=== PATIENT | female | born 1985 | race Caucasian/White ===

== ENCOUNTER 2017-02-28 05:55 | Inpatient (IN) | payer SELFPAY ==
--- NOTE | ~2017-02-28 | HP ---
History And Physical [place] [id number] [facility] [place]. [address] NAME: NAZIA MARRERO : 89 STATUS : ADM IN [facility]#: [id number] AGE: 31 ADM/REG DATE : 02/28/17 MR#: [id number] REPORT SERV DATE: 02/28/17 DICTATED BY: RUTH LEIVA DATE: 02/28/17 REPORT STATUS : Draft TRANSCRIBED BY: LATRICE DATE: 02/28/17 DATE OF ADMISSION: 02/28/2017 REASON FOR ADMISSION: Buttock cellulitis. HISTORY OF PRESENT ILLNESS: This is a 31-year-old, white female, who lives at the [facility] most of the time. She is a reformed heroin addict but had a slip up last week and took a dose of heroin. She was taking this because of pain in her buttock. The pain in the buttock began about five days ago with a small pimple, increased in redness, and now is generalized over the left buttock into the left vulva. She was seen in the emergency room with CT scan of the buttock that showed cellulitis and possibly a fistula. She believes that the problem started with a spider bite on her buttocks because she could see the biting membreno. PAST SURGICAL HISTORY: She has had three surgeries. She had bilateral tubal ligation. Two umbilical hernia surgeries in the past. SOCIAL HISTORY: She grew up in [place], [place]. She lived in [place] most recently. She is addicted to heroin and has taken methamphetamine. She took some methamphetamine even last week. She had withdrawn herself from heroin in the last two years. She has three children. Her mother takes care of the oldest one. Her ex- has custody of the two youngest. She has supervised visitation with the children, though ex- has mother figure that takes care of them who recognize as mother. She smokes cigarettes about a pack a day. She denies any alcohol. She is a reformed heroin addict with a recrudescence. She did not attend voodoo but has [employer] leanings. FAMILY HISTORY: She did not know her biological father. Her mother has COPD. Her brother is in detention. She has a set of twin sisters, one lives in [place] and one lives in [place]. COPD runs in the family. REVIEW OF SYSTEMS: She has pain mostly in the buttocks. No chest pain or shortness of breath. She does have ear pain. She has had fever, chills, and night sweats. She has a large buttock abscess. She has had sexual exposure last time about five months ago, but denies multiple or frequent and proximal sexual partners. HOME MEDICATIONS: Only Clear Eyes eye drops. ALLERGIES: PENICILLIN CAUSES THROAT SWELLING AND SHUT UP. PHYSICAL EXAMINATION: VITAL SIGNS: Blood pressure 116/70 with a heart rate of 130, respiratory rate 18, temperature 98.7 with oxygen saturation 96%. History And Physical [address] [address] NAME: NAZIA MARRERO : [birth year] STATUS : ADM IN [facility]#: [id number] AGE: 31 ADM/REG DATE : 02/28/17 MR#: [id number] REPORT SERV DATE: 02/28/17 DICTATED BY: RUTH LEIVA DATE: 02/28/17 REPORT STATUS : Draft TRANSCRIBED BY: LATRICE DATE: 02/28/17 HEENT: EOMI. Sclerae clear. Conjunctivae pink. NECK: No bruit without any JVD. CHEST: Clear to A and P. HEART: Regular S1, S2 without murmur, gallop, or click. ABDOMEN: Soft and nontender. SKIN: There is redness, swelling, fluctuance feel to the left buttocks. It extends around through the perineal area to the left labia, they are extremely tender to touch. NEUROLOGIC: She withdraws to plantar stimulation. Childcare Center Director is symmetric bilaterally. Coordination intact. She has no tremor. She is extremely uncomfortable and unable to position properly to evaluate the patient in supine position. RECTAL: Not performed. LYMPHATICS: There is no adenopathy palpable. SKIN: There are some acneiform lesion across the face. NEUROLOGIC: The patient has writhing motion that she claims to be due to the buttocks, not stimulants that she smoked nor the injection of the heroin with withdrawal. LABORATORY DATA: She has marked cellulitis in the buttocks and the labial area but question underlying anal fistula by CT scan. The white count was 18,000, hemoglobin 13.6, hematocrit 37.4, platelets were 247,000, sodium 135, potassium 3.7, creatinine 1.12, BUN 15, glucose 89. Urinalysis; 35 white cells per high-power field. ALT 145, AST 58. Urine drug screen positive for amphetamines, cannabis, and opiates. Lactate level was 1.2. ASSESSMENT: 1. Sepsis secondary to buttocks cellulitis. 2. Left buttock cellulitis by CT scan. No abscess was reported. There may be some abscess developing as there is a large fluctuant, tense feeling to the buttocks on the upper left side at the point of scab or the head of the abscess or spider bite as it may be. 3. Possible anal fistula. 4. History of fibromyalgia. 5. Surgeries as above. 6. History of narcotic addiction. 7. Multiple drug use including heroin and methamphetamine. 8. History three pregnancies. 9. Possible history of fibromyalgia. PLAN: We will start triple antibiotic coverage with vancomycin, clindamycin, and cefepime. I will consult Surgery because of question of the anal fistula and consideration for occult abscess versus necrotizing fasciitis that may need to be debrided. DB/LATRICE Ruth History And Physical [address] [address] NAME: NAZIA MARRERO : [birth year] STATUS : ADM IN [facility]#: [id number] AGE: 31 ADM/REG DATE : 02/28/17 MR#: [id number] REPORT SERV DATE: 02/28/17 DICTATED BY: RUTH LEIVA DATE: 02/28/17 REPORT STATUS : Draft TRANSCRIBED BY: MODL DATE: 02/28/17 Saniya Leiva / [id number] CC: Jethro Arredondo Jr, MD Uzma Seymour M.D.
--- NOTE | ~2017-02-28 | DS ---
Discharge Summary [facility] [address] [place]. [address] NAME: NAZIA MARRERO : 89 STATUS : DIS IN PAT#: [id number] AGE: 31 ADM/REG DATE : 02/28/17 MR#: [id number] REPORT SERV DATE: 03/08/17 DICTATED BY: NURISCHANTALEFELIX CARRILLO DATE: 03/07/17 REPORT STATUS : Draft TRANSCRIBED BY: MODL DATE: 03/07/17 ADMISSION DATE: 02/28/2017 DISCHARGE DATE: 03/07/2017 DISCHARGE DIAGNOSES: 1. Left buttocks/vulvar cellulitis. 2. Status post ischiorectal abscess incision and drainage with placement of drains. 3. Anal fistula. 4. History of drug abuse. CONSULTATION: 1. Surgery, Dr. Morel. 2. Infectious Disease, Dr. Meeks. PROCEDURES AND IMAGIN. CT pelvis 02/28/2017, impression mixed cellulitis in buttocks and labia, question underlying anal fistula. May wish to consider MRI for further resolution. 2. MRI of the pelvis 03/05/2017, impression left side lower intersphincteric fistula exiting through the rectum, trans internal anal sphincter complex and there is mid rectal, probably trans external/internal sphincter muscle fistula. It is also associated with cellulitis. There appears to be a small tract along the medial subcutaneous tissue draining the infectious material. 3. Incision and drainage of ischiorectal abscess and placement of drains and anal exam under anesthesia, 03/06/2017, by Dr. George Hager. COURSE OF HOSPITAL STAY: Please refer to history and physical dictated by Dr. Tres Husain on 02/28/2017, for complete admission details as well as consultation notes. This patient is a 31-year-old female who was evaluated at [facility]'s emergency room with complaints of buttock cellulitis. Stating that the pain in her buttocks had increased five days prior to this admission. The patient stated at that time that area began as a small pimple and increasing redness and then was generalized pain in the left buttocks up to the left vulva. The patient does present with a history of heroin addiction but had at that time stated she had recently started re-using up to one week prior to this admission. The patient was admitted to the hospital for further evaluation and treatment to her left buttocks. 1. Left buttocks and vulvar cellulitis: Imaging was obtained, which was noted above. Surgical consult was also obtained. The patient was evaluated. Initially, surgery was held off. Further re-evaluation, the patient did undergo an I and D as noted above on 03/06/[address] Hager. Infectious Disease was consulted due to patient's wound culture returning positive methicillin-resistant Staph aureus. The patient was initially placed on vancomycin, and initially placed on vancomycin and cefepime. Due to the patient's drug history, ID was involved to evaluate best antibiotic for coverage. The patient was then started on Zyvox prior to discharge. The patient did tolerate, will continue Zyvox for a total of eight days. Prescription was provided for the patient, filled in hospital pharmacy, and provided for the patient prior to Discharge [address] [address] NAME: NAZIA MARRERO : 89 STATUS : DIS IN PAT#: [id number] AGE: 31 ADM/REG DATE : 02/28/17 MR#: [id number] REPORT SERV DATE: 03/08/17 DICTATED BY: CHANTALE ILN DATE: 03/07/17 REPORT STATUS : Draft TRANSCRIBED BY: LATRICE DATE: 03/07/17 discharge. Home health care was ordered but due to patient's financial status and location, the patient was unable to provide home health care. The patient and friend were instructed on wound care. The patient will follow up with Surgery in 7-10 days. The patient and friend did state understanding and agreed with the treatment plan. 2. Status post incision and drainage. Again, the patient will follow up with Surgery in 7- 10 days. 3. Anal fistula as noted above. Imaging was obtained. The patient did undergo procedure as noted above. 4. Drug abuse. The patient does admit to heroin use. It was discussed with the patient to do possible and/or outpatient treatment at this time. She has declined. DISCHARGE PLANNING: The patient will be discharged home in a hemodynamically stable condition. She will continue with Zyvox for a total of eight days and prescription has been provided for the patient. She was provided with a prescription for oxycodone 5/325 mg one every four hours p.r.n. for pain #10. The patient again has been advised to follow up with Dr. Madan degroot. Drain at that time will be re-evaluated as well as site. The patient did state understanding. DISCHARGE MEDICATIONS: 1. Multivitamin over the counter. 2. Transdermal nicotine patch over the counter. 3. Zyvox 600 mg one p.o. every a.m. twice daily for a total of eight days. 4. Oxycodone 5/325 mg one every four hours p.r.n. for pain, #10. Discharge took greater than 30 minutes. BRETT/LATRICE Chantale Lin NP / [id number] CC: Eric Rowley MD
--- NOTE | ~2017-02-28 | IDS ---
Interim Discharge Summary [facility] [address] [place]. [address] NAME: ANZIA MARRERO : 89 STATUS : ADM IN PAT#: [id number] AGE: 31 ADM/REG DATE : 02/28/17 MR#: [id number] REPORT SERV DATE: 03/05/17 DICTATED BY: DATE: REPORT STATUS : Draft TRANSCRIBED BY: MODL DATE: 03/04/17 ADMISSION DATE: 02/28/2017 DISCHARGE DATE: DATE OF DISCHARGE: Undetermined at this time. Interim summary covers dates of service between 02/28/2017 and 03/04/2017. CONSULTATIONS: 1. Dr. Mateo Morel, Surgery. 2. Wound nurse team. 3. Dr. Lunsford, Surgery/business applications specialist. HOSPITAL COURSE: 1. Left buttock/vulvar cellulitis. The patient presented to the emergency department on 02/28/2017 with complaint of left buttock and left labial pain. Cefepime, Cleocin, and vancomycin were initiated. No wound cultures were obtained upon admission. Surgery was consulted for recommendations. Initial surgical interventions included localized wound care, continuation of antibiotics, sitz bath, and daily showers with Hibiclens soap. Left buttock lesion opened and drained copious amounts of thick purulent drainage and blood. Erythema and edema to left buttock and left labia improved slightly with antibiotics, however, left buttock wound became more localized with increased induration. Assessment of left buttock wound yesterday included wound probe with sterile Q-tip that demonstrated. Wound was not measured at that time secondary to the patient's inability to tolerate discomfort associated with the assessment. Surgery signed off with recommendations to continue local wound care and antibiotics. Wound nurse was consulted. An attempted measurements of wound depth indicated at least 4 cm tunneling in the direction of the vaginal region. Dr. Lunsford has been consulted for further recommendations to include surgical intervention and wound care. Wound culture was obtained several days after antibiotics were started. Preliminary results indicates Staph species b.i.d. Cleocin was discontinued secondary to high risk for C. diff. Flagyl was initiated and vancomycin and cefepime are to be continued. 2. Anal fistula (?) CT of the pelvis indicated concern for possible anal fistula. MRI of pelvis with IV contrast has been ordered and is pending. 3. Hepatitis C antibody reactive. The patient has a history of recent and remote IV drug abuse. Hepatitis RNA is pending. HIV screen was negative. 4. Drug abuse. The patient has a recent and remote history of heroin and meth abuse. Drug screen was positive for amphetamines, cannabinoids, and opiates. The patient was educated regarding risk associated with illicit drug use. The patient declined outpatient referral for treatment. The patient has history of both in and outpatient treatment. The patient recently completed 10 months with no drug use, but restarted within the last week. The patient is not a candidate for outpatient IV antibiotics requiring PICC line secondary to high abuse potential. 5. Opioid-indued constipation. Continue bowel regimen. DISPOSITION PLAN: Interim Discharge Summary [address] [address] NAME: NAZIA MARRERO : 89 STATUS : ADM IN PAT#: [id number] AGE: 31 ADM/REG DATE : 02/28/17 MR#: [id number] REPORT SERV DATE: 03/05/17 DICTATED BY: DATE: REPORT STATUS : Draft TRANSCRIBED BY: LATRICE DATE: 03/04/17 1. Discharge date is unclear at this time secondary to surgical recommendations pending. 2. The patient may have prolonged hospitalization if IV antibiotics are required. DENNY/LATRICE GRABIEL Jones / [id number] CC: Cheikh Means II, MD
--- NOTE | ~2017-02-28 | OP ---
Record Of Operation [facility] [address] [place]. [address] NAME: NAZIA ADKINS : 89 STATUS : ADM IN PAT#: [id number] AGE: 31 ADM/REG DATE : 02/28/17 MR#: [id number] REPORT SERV DATE: 03/07/17 DICTATED BY: BLU TY DATE: 03/06/17 REPORT STATUS : Draft TRANSCRIBED BY: MODL DATE: 03/06/17 DATE OF PROCEDURE: 02/28/2017 PREOPERATIVE DIAGNOSES: Ischiorectal abscess and possible fistula. POSTOPERATIVE DIAGNOSIS: Ischiorectal abscess. PROCEDURE: Incision and drainage of the ischiorectal abscess with placement of drains and anal exam under anesthesia. SURGEON: Shanita Ty M.D. ESTIMATED BLOOD LOSS: 20 mL. INDICATION: Ms. Adkins is a 31-year-old female with ischiorectal abscess with concern on the MRI that she may have a fistula as well. She had ongoing pain. Additional drainage was recommended as well as possible treatment of fistula that was including bleeding infection and incontinence among others were discussed with her, and she agreed to proceed. DESCRIPTION: The patient was taken to the operating room, given general anesthetic, placed in a prone sandy-knife position. Anal area was prepped and draped, and a left perianal opening was probed, and abscess cavity extended down towards the labia and up in the left buttock. Counter incisions were made x2 after debriding skin and subcutaneous tissue sharply with a scalpel, and then these were sutured into position. I carefully examined the anal canal both by palpation and inspection using a Hirschman anoscope and could not identify any evidence for fistula. Dressing was applied. The patient tolerated the procedure well. JULIA/LATRICE Shanita Ty M.D. / [id number] CC: Eric Rowley MD NO PCP
--- NOTE | ~2017-02-28 | CN ---
Consultation Report [facility] [address] [facility] [place]. [address] NAME: NAZIA MARRERO : 89 STATUS : ADM IN [facility]#: [id number] AGE: 31 ADM/REG DATE : 02/28/17 MR#: [id number] REPORT SERV DATE: 03/04/17 DICTATED BY: DENTON DONATO DATE: 03/02/17 REPORT STATUS : Draft TRANSCRIBED BY: MODL DATE: 03/02/17 GENERAL SURGERY CONSULTATION DATE OF CONSULTATION: 02/28/2017 CONSULTING PHYSICIAN: Dr. Cottrell CONSULTED PHYSICIAN: Dr. Donato. REASON: Left buttock cellulitis. HISTORY OF PRESENT ILLNESS: 31-year-old female with five-day history of left buttock pain, erythema, and pain, is progressively worsening. She also endorses fever and chills. She says that she noted a pimple on her left buttock that has gotten worse. No purulent drainage noted. She also denies any history of Crohn disease. No history of colonoscopy or bloody bowel movements or pain with defecation. REVIEW OF SYSTEMS: 12-point review of systems as stated above otherwise negative. PAST MEDICAL HISTORY: None. PAST SURGICAL HISTORY: Bilateral tubal ligation, umbilical hernia x2. MEDICATIONS: Vanc, clinda, cefepime. No home medications. ALLERGIES: PENICILLIN. SOCIAL HISTORY: She is a heroin and meth user and 1 pack per day smoker. PHYSICAL EXAMINATION: VITAL SIGNS: 94, heart rate 136/81, 99.8, 99% on room air. GENERAL: The patient is in no acute distress. She is alert and oriented x3. HEART: Regular rate and rhythm. No murmurs, rubs, or gallops. LUNGS: Clear to auscultation bilaterally without wheezes, rales or rhonchi. ABDOMEN: Soft, nontender, nondistended. Left buttock and vulvar cellulitis. No discrete areas of fluctuance. She is very tender to palpation and warm to the touch. LABS: White count 18, hematocrit 37.4, platelets 247. RADIOLOGY: CT scan of the pelvis significant for diffuse cellulitis of the left buttocks and labia, no abscess. ASSESSMENT AND PLAN: This is a 31-year-old female with cellulitis, no fluctuance on exam or Consultation Report [facility] [address] [facility] [address] [place]. [address] NAME: NAZIA MARRERO : 89 STATUS : ADM IN PAT#: [id number] AGE: 31 ADM/REG DATE : 02/28/17 MR#: [id number] REPORT SERV DATE: 03/04/17 DICTATED BY: DENTON DONATO DATE: 03/02/17 REPORT STATUS : Draft TRANSCRIBED BY: MODL DATE: 03/02/[address] We will continue IV antibiotics for now. May coalesce into an abscess over the next couple of days. We will continue to monitor. Thank you for the consultation. DICTATED BY: Abbie Granados MD EZ/LATRICE Denton Donato M.D. / [id number] CC: Cheikh Means II, MD
[2017-02-28 05:29] LABS: BASOPHILS 0.2 %; BASOPHILS ABSOLUTE 0.04 10/3/uL (0.0-0.16); EOSINOPHILS 0.4 %; EOSINOPHILS ABSOLUTE 0.08 10/3/uL (0.0-0.53); ER CBC TAT 0 Hrs 07 Mins; HEMATOCRIT 37.4 % (36.0-48.0); HEMOGLOBIN 13.6 g/dL (12.0-16.0); IMMATURE GRANULOCYTES 0.4 %; IMMATURE GRANULOCYTES ABSOLUTE 0.08 10/3/uL (0.0-0.11); LYMPHOCYTES 17.4 %; LYMPHOCYTES ABSOLUTE 3.14 10/3/uL (0.67-4.30); MEAN CORPUS HGB CONC 36.4 g/dL (32.0-36.0); MEAN CORPUSCULAR HEMOGLOB 33.3 pg (26.0-34.0); MEAN CORPUSCULAR VOLUME 91.4 fL (80-100); MEAN PLATELET VOLUME 8.8 fL (9.2-13.0); MONOCYTES 14.5 %; MONOCYTES ABSOLUTE 2.62 10/3/uL (0.21-1.20); NEUTROPHILS 67.1 %; NEUTROPHILS ABSOLUTE 12.05 10/3/uL (2.02-8.40); PLATELET COUNT 246 10/3/uL (150-400); RBC DISTRIBUTION WIDTH 12.5 % (12.0-16.0); RED CELL COUNT 4.09 10/6/uL (4.0-5.6)
[2017-02-28 05:30] LABS: MANUAL DIFF NO %
[2017-02-28 05:36] LABS: INTERNATIONAL NORMAL RATI 1.1 UNITS (-); PROTIME (NOT ORD) 14.3 SEC (12.0-14.5)
[2017-02-28 05:37] LABS: PARTIAL THROMBO TIME 36.3 SEC (22.5-37.2)
[2017-02-28 05:46] LABS: A/G RATIO 0.8 (0.7-1.9); ALBUMIN 3.5 G/DL (3.5-5.0); ALKALINE PHOSPHATASE 108 U/L (45-117); BUN (BLOOD UREA NITROGEN) 15 MG/DL (6-23); CALCIUM, SERUM 8.6 MG/DL (8.5-10.4); CHLORIDE, SERUM 100 MMOL/L (96-112); CO2 (CARBON DIOXIDE) 26 MMOL/L (24-34); CREATININE 1.12 MG/DL (0.55-1.02); GFR AFRICAN AMERICAN 77 ML/MIN (>=60); GFR NON AFRICAN AMERICAN 66 ML/MIN (>=60); GLOBULIN 4.5 G/DL (2.5-4.1); GLUCOSE, SERUM 89 MG/DL (60-99); POTASSIUM, SERUM 3.7 MMOL/L (3.5-5.3); SGOT(AST) 58 U/L (5-40); SGPT(ALT) 145 U/L (5-65); SODIUM, SERUM 135 MMOL/L (135-148)
[2017-02-28 05:47] LABS: ACETAMINOPHEN LEVEL (TYLENOL) < 2.0 MCG/ML (10.0-20.0); ALCOHOL < 10 MG/DL (0); SALICYLATE < 1.7 MG/DL (-)
[2017-02-28 05:53] LABS: LACTATE 1.2 MMOL/L (0.3-2.4)
[2017-02-28 06:04] LABS: ASCORBIC ACID (UR NOT ORDER) NEG (NEG); BILIRUBIN, URINE NEGATIVE (NEG); ER URINALYSIS TAT 0 Hrs 00 Mins; KETONE, URINE NEGATIVE (NEG); LEUKOCYTE ESTERASE(NOT OR LARGE (NEG); NITRITE (URINE) NEG (NEG); WBC (NOT ORDERED) (RFLEX) 35 (0-5)
[2017-02-28 06:33] LABS: AMPHETAMINES (NOT ORD) POS (NEG); BARBITURATES (NOT ORDERED NEG (NEG); BENZODIAZEPINES (NOT ORD) NEG (NEG); CANNABINOIDS (THC) POS (NEG); COCAINE (NOT ORDERED) NEG (NEG); OPIATES POS (NEG); PHENCYCLIDINE(PCP) NEG (NEG); TRICYCLICS NEG (NEG)
[2017-02-28] MEDS ORDERED: CLEAR EYE1 OPH (08:54)
[2017-03-01 06:10] LABS: CALCIUM, SERUM 8.3 MG/DL (8.5-10.4); CHLORIDE, SERUM 103 MMOL/L (96-112); CO2 (CARBON DIOXIDE) 25 MMOL/L (24-34); CREATININE 0.96 MG/DL (0.55-1.02); GFR AFRICAN AMERICAN 93 ML/MIN (>=60); GFR NON AFRICAN AMERICAN 80 ML/MIN (>=60); GLUCOSE, SERUM 94 MG/DL (60-99); SODIUM, SERUM 138 MMOL/L (135-148)
[2017-03-01 06:13] LABS: BUN (BLOOD UREA NITROGEN) 10 MG/DL (6-23)
[2017-03-01 06:28] LABS: BASOPHILS 0.2 %; BASOPHILS ABSOLUTE 0.03 10/3/uL (0.0-0.16); EOSINOPHILS 0.7 %; EOSINOPHILS ABSOLUTE 0.13 10/3/uL (0.0-0.53); HEMATOCRIT 36.2 % (36.0-48.0); HEMOGLOBIN 12.8 g/dL (12.0-16.0); IMMATURE GRANULOCYTES 0.4 %; IMMATURE GRANULOCYTES ABSOLUTE 0.08 10/3/uL (0.0-0.11); LYMPHOCYTES 11.8 %; LYMPHOCYTES ABSOLUTE 2.25 10/3/uL (0.67-4.30); MEAN CORPUS HGB CONC 35.4 g/dL (32.0-36.0); MEAN CORPUSCULAR HEMOGLOB 32.9 pg (26.0-34.0); MEAN CORPUSCULAR VOLUME 93.1 fL (80-100); MONOCYTES 11.6 %; MONOCYTES ABSOLUTE 2.21 10/3/uL (0.21-1.20); NEUTROPHILS 75.3 %; NEUTROPHILS ABSOLUTE 14.39 10/3/uL (2.02-8.40); PLATELET COUNT 236 10/3/uL (150-400); RED CELL COUNT 3.89 10/6/uL (4.0-5.6); WHITE BLOOD CELLS 19.1 10/3/uL (4.5-10.5)
[2017-03-01 06:29] LABS: MANUAL DIFF NO %
[2017-03-01 08:12] LABS: HEPATITIS B SURFACE ANTIGEN NON-REACTIVE (NON-REACT)
[2017-03-01 08:36] LABS: HEPATITIS B CORE AB IGM NON-REACTIVE (NON-REAC)
[2017-03-01 08:39] LABS: HEP A ANTIBODY IGM NON-REACTIVE (NON-REACT)
[2017-03-01 10:30] LABS: HEPATITIS C ANTIBODY REACTIVE (NON-REACT)
[2017-03-02 05:49] LABS: BASOPHILS 0.3 %; BASOPHILS ABSOLUTE 0.03 10/3/uL (0.0-0.16); HEMOGLOBIN 12.2 g/dL (12.0-16.0); LYMPHOCYTES 19.7 %; LYMPHOCYTES ABSOLUTE 1.92 10/3/uL (0.67-4.30); MANUAL DIFF NO %; MEAN CORPUS HGB CONC 35.9 g/dL (32.0-36.0); MEAN CORPUSCULAR HEMOGLOB 33.2 pg (26.0-34.0); MEAN CORPUSCULAR VOLUME 92.4 fL (80-100); MEAN PLATELET VOLUME 9.2 fL (9.2-13.0); MONOCYTES 10.1 %; MONOCYTES ABSOLUTE 0.99 10/3/uL (0.21-1.20); NEUTROPHILS 66.9 %; NEUTROPHILS ABSOLUTE 6.52 10/3/uL (2.02-8.40); PLATELET COUNT 236 10/3/uL (150-400); RBC DISTRIBUTION WIDTH 12.7 % (12.0-16.0); RED CELL COUNT 3.68 10/6/uL (4.0-5.6); WHITE BLOOD CELLS 9.8 10/3/uL (4.5-10.5)
[2017-03-03 07:10] LABS: BASOPHILS 0.7 %; BASOPHILS ABSOLUTE 0.04 10/3/uL (0.0-0.16); EOSINOPHILS ABSOLUTE 0.18 10/3/uL (0.0-0.53); HEMATOCRIT 32.2 % (36.0-48.0); HEMOGLOBIN 11.5 g/dL (12.0-16.0); IMMATURE GRANULOCYTES ABSOLUTE 0.12 10/3/uL (0.0-0.11); LYMPHOCYTES 36.7 %; LYMPHOCYTES ABSOLUTE 2.17 10/3/uL (0.67-4.30); MEAN CORPUS HGB CONC 35.7 g/dL (32.0-36.0); MEAN CORPUSCULAR HEMOGLOB 33.3 pg (26.0-34.0); MEAN CORPUSCULAR VOLUME 93.3 fL (80-100); MEAN PLATELET VOLUME 9.2 fL (9.2-13.0); MONOCYTES ABSOLUTE 0.71 10/3/uL (0.21-1.20); NEUTROPHILS 45.6 %; PLATELET COUNT 257 10/3/uL (150-400); RBC DISTRIBUTION WIDTH 13.1 % (12.0-16.0); RED CELL COUNT 3.45 10/6/uL (4.0-5.6); WHITE BLOOD CELLS 5.9 10/3/uL (4.5-10.5)
[2017-03-03 07:11] LABS: MANUAL DIFF NO %
[2017-03-03 07:18] LABS: CALCIUM, SERUM 7.9 MG/DL (8.5-10.4); CHLORIDE, SERUM 107 MMOL/L (96-112); CO2 (CARBON DIOXIDE) 27 MMOL/L (24-34); CREATININE 0.68 MG/DL (0.55-1.02); GFR AFRICAN AMERICAN 137 ML/MIN (>=60); GFR NON AFRICAN AMERICAN 118 ML/MIN (>=60); GLUCOSE, SERUM 106 MG/DL (60-99); POTASSIUM, SERUM 3.7 MMOL/L (3.5-5.3); SODIUM, SERUM 144 MMOL/L (135-148)
[2017-03-03 07:19] LABS: BUN (BLOOD UREA NITROGEN) 6 MG/DL (6-23)
[2017-03-04 06:17] LABS: BASOPHILS 0.7 %; BASOPHILS ABSOLUTE 0.05 10/3/uL (0.0-0.16); EOSINOPHILS 3.5 %; EOSINOPHILS ABSOLUTE 0.25 10/3/uL (0.0-0.53); HEMATOCRIT 35.1 % (36.0-48.0); HEMOGLOBIN 12.2 g/dL (12.0-16.0); IMMATURE GRANULOCYTES 3.9 %; IMMATURE GRANULOCYTES ABSOLUTE 0.28 10/3/uL (0.0-0.11); MEAN CORPUS HGB CONC 34.8 g/dL (32.0-36.0); MEAN CORPUSCULAR HEMOGLOB 32.8 pg (26.0-34.0); MEAN CORPUSCULAR VOLUME 94.4 fL (80-100); MEAN PLATELET VOLUME 9.2 fL (9.2-13.0); MONOCYTES 10.9 %; MONOCYTES ABSOLUTE 0.79 10/3/uL (0.21-1.20); NEUTROPHILS ABSOLUTE 3.26 10/3/uL (2.02-8.40); PLATELET COUNT 324 10/3/uL (150-400); RBC DISTRIBUTION WIDTH 13.2 % (12.0-16.0); RED CELL COUNT 3.72 10/6/uL (4.0-5.6); WHITE BLOOD CELLS 7.2 10/3/uL (4.5-10.5)
[2017-03-04 06:22] LABS: MANUAL DIFF NO %
[2017-03-04 06:29] LABS: BUN (BLOOD UREA NITROGEN) 5 MG/DL (6-23); CALCIUM, SERUM 8.6 MG/DL (8.5-10.4); CHLORIDE, SERUM 106 MMOL/L (96-112); CO2 (CARBON DIOXIDE) 31 MMOL/L (24-34); CREATININE 0.76 MG/DL (0.55-1.02); GFR AFRICAN AMERICAN 123 ML/MIN (>=60); GFR NON AFRICAN AMERICAN 106 ML/MIN (>=60); POTASSIUM, SERUM 4.4 MMOL/L (3.5-5.3); SODIUM, SERUM 143 MMOL/L (135-148)
[2017-03-04 06:36] LABS: GLUCOSE, SERUM 78 MG/DL (60-99)
[2017-03-05 03:59] LABS: BASOPHILS 0.6 %; BASOPHILS ABSOLUTE 0.06 10/3/uL (0.0-0.16); EOSINOPHILS 1.6 %; EOSINOPHILS ABSOLUTE 0.16 10/3/uL (0.0-0.53); HEMOGLOBIN 12.3 g/dL (12.0-16.0); IMMATURE GRANULOCYTES 2.2 %; IMMATURE GRANULOCYTES ABSOLUTE 0.22 10/3/uL (0.0-0.11); LYMPHOCYTES 27.9 %; LYMPHOCYTES ABSOLUTE 2.79 10/3/uL (0.67-4.30); MEAN CORPUS HGB CONC 35.1 g/dL (32.0-36.0); MEAN CORPUSCULAR HEMOGLOB 33.2 pg (26.0-34.0); MEAN CORPUSCULAR VOLUME 94.3 fL (80-100); MEAN PLATELET VOLUME 8.9 fL (9.2-13.0); MONOCYTES 8.2 %; MONOCYTES ABSOLUTE 0.82 10/3/uL (0.21-1.20); NEUTROPHILS 59.5 %; NEUTROPHILS ABSOLUTE 5.94 10/3/uL (2.02-8.40); PLATELET COUNT 341 10/3/uL (150-400); RED CELL COUNT 3.71 10/6/uL (4.0-5.6)
[2017-03-05 04:00] LABS: MANUAL DIFF NO %
[2017-03-05 04:13] LABS: BUN (BLOOD UREA NITROGEN) 6 MG/DL (6-23); CALCIUM, SERUM 8.8 MG/DL (8.5-10.4); CHLORIDE, SERUM 102 MMOL/L (96-112); CO2 (CARBON DIOXIDE) 32 MMOL/L (24-34); CREATININE 0.82 MG/DL (0.55-1.02); GFR AFRICAN AMERICAN 112 ML/MIN (>=60); GFR NON AFRICAN AMERICAN 97 ML/MIN (>=60); POTASSIUM, SERUM 3.9 MMOL/L (3.5-5.3); SODIUM, SERUM 141 MMOL/L (135-148)
[2017-03-05 04:14] LABS: GLUCOSE, SERUM 99 MG/DL (60-99)
[2017-03-06 02:56] LABS: HCV RNA VIRAL LOAD 6.9 (NOTDET)
[2017-03-07] MEDS ORDERED: ENDOCET1 TAB PO (16:30)
[2017-03-07] MEDS ORDERED: ZYVOXPO PO (16:31)
[2017-03-07] MEDS ORDERED: CENTRUM PO (16:32)
[2017-03-07] MEDS ORDERED: HABIT14 TOP (16:33)
== END 2017-03-07 19:14 | disposition home or self-care (01) | DRG 758 ==
LOC: ER 05:55 → CDU1 08:11 → CDU2 08:14 → 4EA 16:53
PROVIDERS: Internal Medicine; Nurse Practitioner; Nurse Practitioner Family
PROC: 0J9B00Z Drainage of Perineum Subcutaneous Tissue and Fascia with Drainage Device, Open Approach (ICD-10-PCS; principal; 2017-02-28)
DX: N76.2 Acute vulvitis (principal); L03.317 Cellulitis of buttock; F11.10 Opioid abuse, uncomplicated; K60.3 Anal fistula; B19.20 Unspecified viral hepatitis C without hepatic coma
CPT/HCPCS: 72193; 72197; 80048; 80053; 80074; 80202; 80305; 80307; 81001; 83605; 84145; 84703; 85025; 85610; 85730; 87040; 87070; 87077; 87086; 87186; 87205; 87389; 87522; 96374; 96375; 99285; A9270-GY; A9577; J0692; J1170; J2250; J2405; J2550; J2710; J3010; J3370; J3411; Q9967

== ENCOUNTER 2017-03-10 05:34 | Emergency (ER) | payer SELFPAY ==
[~2017-03-10 05:34] MED LIST: CENTRUM PO; CLEAR EYE1 OPH; ENDOCET1 TAB PO; HABIT14 TOP; ZYVOXPO PO
[2017-03-10 05:47] LABS: BASOPHILS 0.5 %; BASOPHILS ABSOLUTE 0.04 10/3/uL (0.0-0.16); EOSINOPHILS 1.8 %; EOSINOPHILS ABSOLUTE 0.16 10/3/uL (0.0-0.53); HEMOGLOBIN 13.5 g/dL (12.0-16.0); IMMATURE GRANULOCYTES 0.5 %; IMMATURE GRANULOCYTES ABSOLUTE 0.04 10/3/uL (0.0-0.11); LYMPHOCYTES 44.3 %; LYMPHOCYTES ABSOLUTE 3.87 10/3/uL (0.67-4.30); MEAN CORPUS HGB CONC 34.7 g/dL (32.0-36.0); MEAN CORPUSCULAR HEMOGLOB 33.5 pg (26.0-34.0); MEAN CORPUSCULAR VOLUME 96.5 fL (80-100); MEAN PLATELET VOLUME 8.6 fL (9.2-13.0); MONOCYTES 9.2 %; NEUTROPHILS 43.7 %; NEUTROPHILS ABSOLUTE 3.83 10/3/uL (2.02-8.40); PLATELET COUNT 428 10/3/uL (150-400); RBC DISTRIBUTION WIDTH 13.6 % (12.0-16.0); RED CELL COUNT 4.03 10/6/uL (4.0-5.6); WHITE BLOOD CELLS 8.7 10/3/uL (4.5-10.5)
[2017-03-10 05:49] LABS: HEMATOCRIT 38.9 % (36.0-48.0); MANUAL DIFF NO %
[2017-03-10 06:02] LABS: CALCIUM, SERUM 9.4 MG/DL (8.5-10.4); CHLORIDE, SERUM 105 MMOL/L (96-112); CO2 (CARBON DIOXIDE) 32 MMOL/L (24-34); GFR AFRICAN AMERICAN 71 ML/MIN (>=60); GFR NON AFRICAN AMERICAN 61 ML/MIN (>=60); GLUCOSE, SERUM 82 MG/DL (60-99); SODIUM, SERUM 142 MMOL/L (135-148)
[2017-03-10 06:03] LABS: BUN (BLOOD UREA NITROGEN) 12 MG/DL (6-23); POTASSIUM, SERUM 4.8 MMOL/L (3.5-5.3)
== END 2017-03-10 06:39 | disposition home or self-care (01) ==
LOC: ER 05:34
PROVIDERS: Specialist
DX: M79.1 Myalgia (principal); G89.18 Other acute postprocedural pain; Z88.0 Allergy status to penicillin; Z79.899 Other long term (current) drug therapy; F17.200 Nicotine dependence, unspecified, uncomplicated
CPT/HCPCS: 80048; 85025; 96374; 99283; J1170; J2405